=== PATIENT | female | born 1985 | race Caucasian/White ===

== ENCOUNTER 2016-09-05 09:50 | Day surgery (SDC) | payer MEDICAID ==
[2016-08-29 11:15] LABS: HEMATOCRIT 42.3 % (36.0-47.0); HEMOGLOBIN 14.3 g/dL (12.0-15.5); HGB HCT DIFFERENCE 0.6; MEAN CORPUSCULAR HEMOGLOBIN 30.1 pg (27.0-33.4); MEAN CORPUSCULAR HGB CONC 33.8 g/dL (32.0-36.0); MEAN CORPUSCULAR VOLUME 89 fl (80-97); RED BLOOD COUNT 4.75 10^6/uL (3.72-5.28); RED CELL DISTRIBUTION WIDTH 13.5 % (11.5-14.0); WHITE BLOOD COUNT 8.3 10^3/uL (4.0-10.5)
[2016-08-29 11:25] LABS: APPEARANCE,URINE CLEAR; BILIRUBIN,URINE NEGATIVE (NEGATIVE); GLUCOSE, URINE NEGATIVE (NEGATIVE); KETONES,URINE NEGATIVE (NEGATIVE); LEUKOCYTE ESTERASE,URINE NEGATIVE (NEGATIVE); NITRITE,URINE NEGATIVE (NEGATIVE); PROTEIN,URINE NEGATIVE (NEGATIVE); URINE SPECIFIC GRAVITY 1.002; UROBILINOGEN,URINE NEGATIVE mg/dL (<2.0)
--- NOTE | 2016-08-29 21:30 | EKG REPORT ---
SEVERITY:- NORMAL ECG - SINUS RHYTHM : Confirmed by: Arcelia Munguia 29-Aug-2016 21:30:39
[~2016-09-05 09:50] MED LIST: LACTATED RINGERS 1000 ML IV PRN; LIDOCAINE 0.5% INJ-PF (5 MG/ML) 50 ML SDV SUBCUT PRN
[2016-09-05] MEDS ORDERED: ROCURONIUM BROMIDE INJ 50 MG/5 ML VIAL IV ONE (10:05)
[2016-09-05] MEDS ORDERED: SUCCINYLCHOLINE CHLORIDE INJ 200 MG/10 ML VIAL ONE (10:05)
[2016-09-05] MEDS ORDERED: ONDANSETRON HCL INJ/PF 4 MG/2 ML SDV ONE (10:05)
[2016-09-05] MEDS ORDERED: KETOROLAC TROMETHAMINE 60 MG/2 ML SDV ONE (10:05)
[2016-09-05] MEDS ORDERED: DEXAMETHASONE SOD PHOSPHATE INJ 4 MG/1 ML VIAL ONE (10:05)
[2016-09-05] MEDS ORDERED: MIDAZOLAM 2 MG/2 ML INJ ONE (12:24)
[2016-09-05] MEDS ORDERED: FENTANYL CITRATE INJ/PF 100 MCG/2 ML AMPUL ONE ×2 (12:24)
[2016-09-05] MEDS ORDERED: HYDROMORPHONE HCL INJ/PF 2 MG/ML AMPULE ONE (12:25)
[2016-09-05] MEDS ORDERED: PROPOFOL INJ 200 MG/20 ML VIAL IV ONE (12:25)
[2016-09-05] MEDS ORDERED: OXYCODONE-ACETAMINOPHEN 5-325 MG TABLET PO PRN ×4 (13:43→14:16)
[2016-09-05] MEDS ORDERED: MORPHINE SULFATE 10 MG/ML INJ IV PRN (13:43)
[2016-09-05] MEDS ORDERED: PROMETHAZINE HCL INJ 25 MG/1 ML VIAL IV PRN ×2 (13:43)
[2016-09-05] MEDS ORDERED: FENTANYL CITRATE INJ/PF 100 MCG/2 ML AMPUL IV PRN ×3 (13:43)
[2016-09-05] MEDS ORDERED: MEPERIDINE HCL/PF INJ 25 MG/1 ML DISP.SYRIN IV PRN (13:43)
[2016-09-05] MEDS ORDERED: DIPHENHYDRAMINE HCL 50 MG/ML VIAL IV PRN (13:43)
[2016-09-05] MEDS ORDERED: DIPHENHYDRAMINE HCL 50 MG/ML VIAL ONE (13:55)
[2016-09-05] MEDS ORDERED: ACETAMINOPHEN 100 ML IV ONE (13:59)
[2016-09-05] MEDS ORDERED: MORPHINE SULFATE 10 MG/ML INJ IM PRN (14:13)
[2016-09-05] MEDS ORDERED: IBUPROFEN 800 MG TABLET PO PRN (14:15)
--- NOTE | 2016-09-05 14:33 | OPERATIVE REPORT E ---
Operative Report NAME: MIQUEL HALL : 1985 AGE: 31Y DATE OF SURGERY: 09/05/2016 ROOM: PREOPERATIVE DIAGNOSES: 1. RETAINED IUD. 2. UNDESIRED FERTILITY. 3. CHRONIC PELVIC PAIN. 4. SUSPICION OF ADHESION DISEASE. 5. FAMILY HISTORY OF OVARIAN CANCER. POSTOPERATIVE DIAGNOSES: 1. RETAINED IUD. 2. UNDESIRED FERTILITY. 3. CHRONIC PELVIC PAIN. 4. SUSPICION OF ADHESION DISEASE. 5. FAMILY HISTORY OF OVARIAN CANCER. 6. MILD HYDROSALPINX. OPERATION: 1. Hysteroscopic IUD removal. 2. Bilateral salpingectomy. SURGEON: RUBIA JONES M.D. ANESTHESIA: Reji Cole MD, general. COMPLICATIONS: None. FINDINGS: Left fallopian tube had some filmy adhesions to the left ovary and it was slightly dilated, indicative of possible hydrosalpinx. 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 The ovaries and the uterus were normal in appearance. On the hysteroscope, the retained IUD was easily found in the uterine cavity with the strings curled around the base of the IUD. ESTIMATED BLOOD LOSS: 20 mL. SPECIMENS REMOVED: Bilateral fallopian tubes and IUD. PROCEDURE IN DETAIL: The patient was taken to the operating room and prepared and draped in a normal sterile fashion in the dorsal lithotomy position. Under sterile conditions, an in and out catheterization was performed of approximately 5 mL of clear urine. A sterile specimen was placed into the vagina. The cervix was grasped on the anterior lip with a single-tooth tenaculum and the cervix was then sounded to approximately 10 cm and dilated to accommodate a MyoSure hysteroscope. The hysteroscope was the IUD easily found and grasped by the blue strings which were wrapped around the base of the IUD and the IUD was removed in this manner. The hysteroscope was set aside and removed from the field. The single-tooth tenaculum was removed and the Hulka clamp replaced the tenaculum for uterine manipulation. The speculum was removed and gloves were changed and attention was turned to the upper portion of the case. A 5 mm skin incision was made at the umbilicus and the Veress needle was introduced and peritoneal cavity placement was confirmed with free flow of sterile water as well as an entering pressure of less than 10 mmHg. The abdomen was the insufflated with approximately 2 liters of CO2 gas. The Veress needle was removed and a 5 mm trocar was placed through this incision and the camera was introduced with the above findings noted. Under direct visualization, two 5 mm ports were placed approximately 10 cm apart in the left and right lower quadrants. Beginning with the right fallopian tube, the fallopian tube was then grasped with an atraumatic grasper. The uterus was elevated and a LigaSure was used to remove the right fallopian tube in completion. It was noted also that there was a small amount of filmy adhesions around this ovary as well, but as significant as on the left. The right fallopian tube was then removed through the trocar and the attention was turned to the left fallopian tube, where a similar procedure was repeated using the LigaSure and the fallopian tube from the mesosalpinx and uterine cornua. This fallopian tube was then removed also. The cavity was inspected and found to be hemostatic. The two lower quadrants trocars were removed under direct visualization with good hemostasis. The gas was released through the umbilical port after the camera was removed, until the abdomen was as deflated as we could get it. The trocar was removed. The 3 skin sites were closed with 4-0 Monocryl. The patient tolerated the procedure well. Sponge, needle, and instrument counts were correct x2. The Hulka clamp was removed from the vagina at the end of the case. DICTATING PHYSICIAN: RUBIA JONES M.D. [id number] PHY#: [id number] ID: [id number] JOB#: [id number] ACCT: [id number] cc:RUBIA JONES M.D. >
[2016-09-05 15:53] VITALS: BP 118/76
== END 2016-09-05 16:10 | disposition home or self-care (01) ==
LOC: OROUT 09:50
PROVIDERS: ATTEND Obstetrics & Gynecology
PROC: 0UT74ZZ Resection of Bilateral Fallopian Tubes, Percutaneous Endoscopic Approach (ICD-10-PCS; principal; 2016-09-05 11:45)
PROC: 0UPD8HZ Removal of Contraceptive Device from Uterus and Cervix, Via Natural or Artificial Opening Endoscopic (ICD-10-PCS; 2016-09-05 11:45)
DX: Z30.432 Encounter for removal of intrauterine contraceptive device (principal); Z30.2 Encounter for sterilization; Z87.891 Personal history of nicotine dependence; N70.11 Chronic salpingitis; G89.29 Other chronic pain; R10.2 Pelvic and perineal pain; Z80.41 Family history of malignant neoplasm of ovary; E66.9 Obesity, unspecified; Z68.32 Body mass index [BMI] 32.0-32.9, adult
CPT/HCPCS: 93005; 36415; 85027; 81025; 81001; 88302 ×2; 93010; 58661; 58579; J2250; J3490; J1100; J1200; J1885; J3010; J1170; J0330; J2405; J2704; J0131; 840

== ENCOUNTER → 2017-01-17 | Outpatient (CLI) | payer MEDICAID ==
--- NOTE | 2017-01-17 10:18 | RADIOLOGY REPORT (SQ) ---
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 TECHNIQUE: Axial images acquired through the brain without intravenous contrast. Images reviewed wi th bone, brain and subdural windows. Images stored on PACS. All CT scanners at this facility use dose modulation, iterative reconstruction, and/or weight based d osing when appropriate to reduce radiation dose to as low as reasonably achievable (ALARA). [facility]: Dose Right [facility]: CareDose [facility]: Dose Right [facility]: Teradose 4D [facility]: Fieldglass RADIATION DOSE: Up-to-date CT equipment and radiation dose reduction techniques were employed. CTDIv ol: 49.0 mGy. DLP: 783 mGy-cm. mGy. LIMITATIONS: None. FINDINGS: VENTRICLES: Normal size and contour. CEREBRUM: No masses. No hemorrhage. No midline shift. No evidence for acute infarction. Normal gra y/white matter differentiation. No areas of low density in the white matter. CEREBELLUM: No masses. No hemorrhage. No alteration of density. No evidence for acute infarction. EXTRAAXIAL SPACES: No fluid collections. No masses. ORBITS AND GLOBE: No intra- or extraconal masses. Normal contour of globe without masses. CALVARIUM: No fracture. PARANASAL SINUSES: No fluid or mucosal thickening. SOFT TISSUES: No mass or hematoma. OTHER: No other significant finding. IMPRESSION: NORMAL BRAIN CT WITHOUT CONTRAST. EVIDENCE OF ACUTE STROKE: NO. COMMENT: Quality ID # [id number]: Final reports with documentation of one or more dose reduction techniques (e.g., Automated exposure control, adjustment of the mA and/or kV according to patient size, use of iterative reconstruction technique) TECHNICAL DOCUMENTATION: JOB ID: [id number] [email or web address]- All Rights Reserved
== END ==
LOC: RAD 08:31
PROVIDERS: ATTEND Physician Assistant
DX: G43.119 Migraine with aura, intractable, without status migrainosus (principal)
CPT/HCPCS: 70450

== ENCOUNTER 2017-06-16 10:34 | Day surgery (SDC) | payer MEDICAID ==
[~2017-06-16 10:34] MED LIST changes: -LACTATED RINGERS 1000 ML IV PRN; -LIDOCAINE 0.5% INJ-PF (5 MG/ML) 50 ML SDV SUBCUT PRN; +PROPOFOL INJ 200 MG/20 ML VIAL IV ONE
[2017-06-16] MEDS ORDERED: PROPOFOL INJ 200 MG/20 ML VIAL IV ONE (13:06)
[2017-06-16 13:07] VITALS: BP 113/78
--- NOTE | 2017-06-16 13:42 | Operative Report ---
Operative Report DATE OF SURGERY: 06/16/17 Operative Report: The risks, benefits and alternatives of the procedure including risks of bleeding, perforation requiring surgery are explained to the patient in detail and informed consent is obtained. The patient is brought back to the endoscopy suite and placed in a left, lateral decubital position. Timeout was called. Propofol medication is administered. A rectal examination is done which did not reveal any masses, tears or fissures. An Olympus videoscope was inserted into the patient's rectum. The scope was then carefully advanced all the way to the cecum. The cecum is identified by the usual anatomical landmarks including the ileocecal valve as well as the appendiceal office. Photodocumentation is obtained. The scope was then sequentially pulled back via the various segments of the colon including the ascending colon, hepatic flexure, transverse colon, splenic flexure, descending colon and finally into the rectosigmoid portions of the colon. Retroflexion maneuver is performed. The risks benefits and alternatives of the procedure explained to the patient in detail and informed consent is obtained.A GIF Olympus video scope was inserted into the patient's mouth and hypopharynx, the esophagus is identified intubated and insufflated, the scope was then advanced through the esophagus stomach and duodenum, retroflexion maneuver is done, the esophagus stomach and first and second portions of the duodenum examined PREOPERATIVE DIAGNOSIS: Epigastric pain. Mild dysphagia. Right lower quadrant pain rule out Crohn's disease POSTOPERATIVE DIAGNOSIS: Mild terminal ileitis status post biopsy rule out Crohn 's disease. Internal hemorrhoids. Gastritis status post biopsy rule out Helicobacter pylori. Esophageal rings and furrows suggestive of eosinophilic esophagitis status post biopsy. Hiatal hernia. Dominant Schatzki's ring which is broken OPERATION: Colonoscopy with biopsy. EGD with biopsy SURGEON: BRENNAN LOUIS ANESTHESIA: LMAC TISSUE REMOVED OR ALTERED: As noted above. COMPLICATIONS: None. ESTIMATED BLOOD LOSS: None. INTRAOPERATIVE FINDINGS: As noted above. PROCEDURE: Patient tolerated procedure well. No immediate postprocedure complications are noted. Patient discharged in good condition. Discharge date 06/16/2017. Discharge diet: Regular. Discharge activity: Regular. 2-3 week follow-up to discuss findings. Patient is instructed to call the office or proceed to the emergency room should there be any further problems or questions. We will went pathology.
== END 2017-06-16 13:00 | disposition home or self-care (01) ==
LOC: END 10:34
PROVIDERS: ATTEND Internal Medicine Gastroenterology
PROC: 0DBB8ZX Excision of Ileum, Via Natural or Artificial Opening Endoscopic, Diagnostic (ICD-10-PCS; 2017-06-16)
PROC: 0DB58ZX Excision of Esophagus, Via Natural or Artificial Opening Endoscopic, Diagnostic (ICD-10-PCS; principal; 2017-06-16 13:30)
PROC: 0DB68ZX Excision of Stomach, Via Natural or Artificial Opening Endoscopic, Diagnostic (ICD-10-PCS; 2017-06-16 13:30)
DX: K52.9 Noninfective gastroenteritis and colitis, unspecified (principal); K64.8 Other hemorrhoids; K22.2 Esophageal obstruction; K44.9 Diaphragmatic hernia without obstruction or gangrene; Z87.891 Personal history of nicotine dependence; Z79.899 Other long term (current) drug therapy
CPT/HCPCS: 43239; 45380; 88305 ×2; J2704; 813

== ENCOUNTER → 2017-10-17 | Outpatient (CLI) | payer MEDICAID ==
--- NOTE | 2017-10-17 12:19 | EKG REPORT ---
SEVERITY:- NORMAL ECG - SINUS RHYTHM : Confirmed by: Ted Napier MD 17-Oct-2017 12:18:31
== END ==
LOC: OD 12:00
PROVIDERS: ATTEND Nurse Practitioner Family
DX: R07.9 Chest pain, unspecified (principal)
CPT/HCPCS: 93005; 93010

== ENCOUNTER 2017-11-29 17:45 | Emergency (ER) | payer MEDICAID ==
[2017-11-29 18:09] VITALS: BP 126/90
[2017-11-29 18:55] LABS: APPEARANCE,URINE CLEAR; BILIRUBIN,URINE NEGATIVE (NEGATIVE); COLOR,URINE COLORLESS; GLUCOSE, URINE NEGATIVE (NEGATIVE); KETONES,URINE NEGATIVE (NEGATIVE); LEUKOCYTE ESTERASE,URINE NEGATIVE (NEGATIVE); NITRITE,URINE NEGATIVE (NEGATIVE); PROTEIN,URINE NEGATIVE (NEGATIVE); URINE SPECIFIC GRAVITY 1.002; UROBILINOGEN,URINE NEGATIVE mg/dL (<2.0)
--- NOTE | 2017-11-29 19:05 | ER Document Report ---
ED General - General Chief Complaint: Chest Pain Stated Complaint: CHEST PAIN/DIZZY Time Seen by Provider: 11/29/17 19:00 Mode of Arrival: Ambulatory Information source: Patient Notes: Chief complaint: Epigastric pain History of complain:( obtained from----patient) 32 years old female with a history of hiatal hernia, was lifting a heavy water bottle case, when she was lifting she felt sharp pain in the epigastrium radiating to the both sides and also felt dizzy and lightheaded. Then again when she was lifting it from the car into the house she felt the same pain. Therefore concerned and came to the ER. Is not associated with any nausea palpitation or diaphoresis. Denied any left arm numbness tingling sensation. Has a history of anxiety take Xanax as needed basis but did not feel anxious. Onset: As above Duration: As above Severity: Mild to moderate Quality: Sharp Context: As described above Exacerbating factor and relieving factors: As described above REVIEW OF SYSTEMS: CONSTITUTIONAL : Denies fever, chills, or sweats. Denies recent illness. EENT: Denies eye, ear, throat, or mouth pain or symptoms. Denies nasal or sinus congestion or discharge. Denies throat, tongue, or mouth swelling or difficulty swallowing. CARDIOVASCULAR: Denies chest pain. Denies palpitations or racing or irregular heart beat. Denies ankle edema. RESPIRATORY: Denies cough, cold, or chest congestion. Denies shortness of breath, difficulty breathing, or wheezing. GASTROINTESTINAL: Denies distention. Denies nausea, vomiting, or diarrhea. Denies blood in vomitus, stools, or per rectum. Denies black, tarry stools. Denies constipation. GENITOURINARY: Denies difficulty urinating, painful urination, burning, frequency, blood in urine, or discharge. FEMALE GENITOURINARY: Denies vaginal bleeding, heavy or abnormal periods, irregular periods. Denies vaginal discharge or odor. MUSCULOSKELETAL: Denies back or neck pain or stiffness. Denies joint pain or swelling. SKIN: Denies rash, lesions or sores. HEMATOLOGIC : Denies easy bruising or bleeding. LYMPHATIC: Denies swollen, enlarged glands. NEUROLOGICAL: Denies confusion or altered mental status. Denies passing out or loss of consciousness. Denies dizziness or lightheadedness. Denies headache. Denies weakness or paralysis or loss of use of either side. Denies problems with gait or speech. Denies sensory loss, numbness, or tingling. Denies seizures. PSYCHIATRIC: Denies anxiety or stress. Denies depression, suicidal ideation, or homicidal ideation. ALL OTHER SYSTEMS REVIEWED AND NEGATIVE. PHYSICAL EXAMINATION: GENERAL: Well-appearing, well-nourished and in no acute distress. HEAD: Atraumatic, normocephalic. EYES: Pupils equal round and reactive to light, extraocular movements intact, conjunctiva are normal. ENT: Nares patent, oropharynx clear without exudates. Moist mucous membranes. NECK: Normal range of motion, supple without lymphadenopathy LUNGS: Breath sounds clear to auscultation bilaterally and equal. No wheezes rales or rhonchi. HEART: Regular rate and rhythm without murmurs ABDOMEN: Soft, nontender, nondistended abdomen. No guarding, no rebound. No masses appreciated. Examination of genitals-deferred Musculoskeletal: Normal range of motion, no pitting or edema. No cyanosis. NEUROLOGICAL: Cranial nerves grossly intact. Normal speech, normal gait. Normal sensory, motor exams PSYCH: Normal mood, normal affect. SKIN: Warm, Dry, normal turgor, no rashes or lesions noted. Dictation was performed using [employer] voice recognition software TRAVEL OUTSIDE OF THE [place] IN LAST 30 DAYS: No - HPI Notes: Dictated - Related Data Allergies/Adverse Reactions: oxycodone HCl [From Percocet] Adverse Reaction (Mild, Verified 11/29/17 17:45) Nausea Catfish Allergy (Uncoded 11/29/17 17:45) Anaphylaxis Grapes Allergy (Uncoded 11/29/17 17:45) Hives Latex in tape Adverse Reaction (Uncoded 11/29/17 17:45) Irritation, "blood blister" Past Medical History - Social History Smoking Status: Never Smoker Chew tobacco use (# tins/day): No Frequency of alcohol use: None Drug Abuse: None Lives with: Family Family History: Reviewed & Not Pertinent Patient has suicidal ideation: No Patient has homicidal ideation: No - Past Medical History Cardiac Medical History: Denies: Hx Coronary Artery Disease, Hx Heart Attack, Hx Hypertension Pulmonary Medical History: Denies: Hx Asthma, Hx Bronchitis, Hx COPD, Hx Pneumonia Neurological Medical History: Denies: Hx Cerebrovascular Accident, Hx Seizures Renal/ Medical History: Denies: Hx Peritoneal Dialysis Musculoskeletal Medical History: Denies Hx Arthritis Past Surgical History: Reports: Hx Orthopedic Surgery - Immunizations Hx Diphtheria, Pertussis, Tetanus Vaccination: No - unsure Review of Systems - Review of Systems Notes: Dictated Physical Exam - Vital signs Vitals: Temp Pulse Resp BP Pulse Ox 99.0 F 81 20 126/90 H 99 11/29/17 18:07 11/29/17 18:07 11/29/17 18:07 11/29/17 18:07 11/29/17 18:07 - Notes Notes: Dictated Course - Vital Signs Vital signs: Temp Pulse Resp BP Pulse Ox 99.0 F 81 20 126/90 H 99 11/29/17 18:07 11/29/17 18:07 11/29/17 18:07 11/29/17 18:07 11/29/17 18:07 - Laboratory Laboratory results interpreted by me: 11/29/17 17:50 Urine Blood SMALL H - Diagnostic Test Radiology reviewed: Reports reviewed - Sinus rhythm at 76 bpm normal axis no acute T wave changes. Normal cardiogram Discharge - Discharge Clinical Impression: Hiatal hernia, Chest wall pain Condition: Fair Disposition: HOME, SELF-CARE Instructions: Chest Wall Pain ([facility]), Hernia ([facility]) Referrals: BRENDA WILKES NP [Primary Care Provider] - Follow up as needed
--- NOTE | 2017-11-29 20:21 | EKG REPORT ---
SEVERITY:- BORDERLINE ECG - SINUS RHYTHM PROBABLE LEFT ATRIAL ABNORMALITY BORDERLINE T ABNORMALITIES, ANT-LAT LEADS : Confirmed by: Val Gonzalez MD 29-Nov-2017 20:20:29
== END 2017-11-29 19:13 | disposition home or self-care (01) ==
LOC: ER 17:45
DX: K44.9 Diaphragmatic hernia without obstruction or gangrene (principal); R07.89 Other chest pain; R10.13 Epigastric pain; X50.0XXA Overexertion from strenuous movement or load, initial encounter; R42 Dizziness and giddiness; F41.9 Anxiety disorder, unspecified; Z91.018 Allergy to other foods; Z87.892 Personal history of anaphylaxis; Z91.013 Allergy to seafood
CPT/HCPCS: 81001; 93005; 93010; 99285